=== PATIENT | male | born 1975 | race Caucasian/White ===

== ENCOUNTER 2018-06-16 12:39 | Emergency (ER) | payer MEDICAID ==
[2018-06-16 12:43] VITALS: BP 158/85
[2018-06-16] MEDS ORDERED: TDAP ADULT 0.5 ML INJ (BOOSTRIX) IM ONE (13:11)
[2018-06-16] MEDS ORDERED: AMOXICILLIN/CLAVULANATE POT 875/125 MG TAB PO ONE (13:11)
--- NOTE | 2018-06-16 13:11 | EDPHY ---
H & P Time Seen by Provider: 06/16/18 13:05 HPI/ROS: CHIEF COMPLAINT: Squirrel bite right index finger HISTORY OF PRESENT ILLNESS: 43-year-old male with out-of-date tetanus was bitten by a squirrel today. The squirrel entered the house an , believing it was a formerly semi-domesticated squirrel that had returned home, the patient reached down and squirrel bit his finger. Occurred shortly prior to arrival PHYSICAL EXAM (Prior to examination, patient consented to physical exam, hands were washed and my usual and customary physical exam procedures followed) 1) GENERAL: Well-developed, well-nourished, alert and oriented. Appears to be in no acute distress. 2) HEAD: Normocephalic 3) HEENT: sclera anicteric 4) LUNGS: Breathing comfortably. 5) SKIN: Puncture wound x2. No signs of infection. No erythema no lymphangitic streaking. Negative kanavel. 6) MUSCULOSKELETAL: Right index finger puncture wound x2 to the PIP joint. No pain with range of motion to the MCP PIP or D IP. No shortening no malrotation 7) NEUROLOGIC: Full sensation and two-point discrimination intact distally Smoking Status: Unknown if ever smoked Constitutional: Initial Vital Signs Temperature (C) 36.8 C 06/16/18 12:41 Heart Rate 88 06/16/18 12:41 Respiratory Rate 18 06/16/18 12:41 Blood Pressure 158/85 H 06/16/18 12:41 O2 Sat (%) 98 06/16/18 12:41 O2 Delivery Mode Room Air Allergies/Adverse Reactions: acetaminophen [From Vicodin] Allergy (Intermediate, Verified 04/04/12 06:21) Hives hydrocodone bitartrate [From Vicodin] Allergy (Intermediate, Verified 04/04/12 06:21) Hives carisoprodol [From Soma] Allergy (Mild, Verified 04/04/12 06:21) tylenol #3 Allergy (Intermediate, Uncoded 04/04/12 06:21) Hives Home Medications: Medication Instructions Recorded No Medications [No Meds] 1 ea MISC 03/27/12 Amoxicillin/Clavulanate Pot 875 mg PO BID #14 tab 06/16/18 [Augmentin 875 mg tab] MDM/Departure - MDM Medications Given: Discontinued Medications Amoxicillin/Clavulanate Potassium (Augmentin 875mg) 875 mg PO EDNOW ONE PRN Reason: Protocol Stop: 06/16/18 13:12 Last Admin: 06/16/18 13:22 Dose: 875 mg Diphtheria/Tetanus/Acell Pertussis (Boostrix) 0.5 ml IM .ONCE ONE Stop: 06/16/18 13:12 Last Admin: 06/16/18 13:22 Dose: 0.5 ml ED Course/Re-evaluation: I do not think that rabies post exposure prophylaxis is indicated. His wound has been copiously irrigated he is started on post exposure prophylaxis for bites as well as tetanus update. My usual and customary wound precautions and instructions have been provided. Care of patient under supervision of secondary supervising physician Dr Beatty with whom I discussed case. - Depart Disposition: Home, Routine, Self-Care Clinical Impression: Squirrel bite right finger Condition: Good Instructions: Animal Bite (ED) Additional Instructions: Return to the ER if you develop redness, swelling, discharge, warmth to the wound, red streaks going up your arm, or any other symptoms that concern you. Prescriptions: Amoxicillin/Clavulanate Pot [Augmentin 875 mg tab] 875 mg PO BID #14 tab Referrals: Esperanza Hurst MD [Primary Care Provider] - 1-2 days without fail
== END 2018-06-16 13:44 | disposition home or self-care (01) ==
LOC: SUPCPDRO 12:39
DX: S61.238A Puncture wound without foreign body of other finger without damage to nail, initial encounter (principal); W53.21XA Bitten by squirrel, initial encounter; Z23 Encounter for immunization